=== PATIENT | male | born 1985 | race African-American/Black ===

== ENCOUNTER 2019-11-06 21:03 | Emergency (ER) | payer MEDICAID ==
[~2019-11-06] VITALS: Ht 175.3 cm; Wt 65.0 kg
[2019-11-06 22:05] VITALS: BP 136/70
== END 2019-11-07 01:48 | disposition left against medical advice (07) ==
LOC: ER 21:03
DX: M79.10 Myalgia, unspecified site (principal); Z53.21 Procedure and treatment not carried out due to patient leaving prior to being seen by health care provider